=== PATIENT | female | born 1985 | race Caucasian/White ===

== ENCOUNTER 2019-08-27 05:23 | Inpatient (IN) | payer MEDICARE ==
[~2019-08-27] VITALS: Ht 172.7 cm; Wt 87.5 kg
[2019-08-27] MEDS ORDERED: PNV1TABL50 PO (05:55)
[2019-08-27] MEDS ORDERED: OMEGA (05:55)
[2019-08-27] MEDS ORDERED: FERR325T6 PO (05:55)
[2019-08-27] MEDS ORDERED: VITAMIN D (05:55)
[2019-08-27 07:45] LABS: CLARITY URINE CLEAR (CLEAR); COLOR URINE YELLOW (YELLOW); KETONES URINE NEGATIVE (NEGATIVE); LEUKOCYTE ESTERASE URINE NEGATIVE (NEGATIVE); NITRITE URINE NEGATIVE (NEGATIVE); OCCULT BLOOD URINE NEGATIVE (NEGATIVE); PH URINE 6.5 (4.5-8.0); PROTEIN URINE TRACE (NEGATIVE); SPECIFIC GRAVITY URINE 1.019 (1.005-1.030)
[2019-08-27] MEDS ORDERED: DEXT 5%/LR + PITOCIN 20UNITS/L 1,000 ML IV SCH ×2 (07:48→18:26)
[2019-08-27] MEDS ORDERED: NALOXONE HCL 0.4 MG/ML 1ML VIAL IM PRN (08:00)
[2019-08-27] MEDS ORDERED: RHO(D) IMMUNE GLOBULIN 300 MCG/SYR IM ONE (08:00)
[2019-08-27] MEDS ORDERED: LIDOCAINE HCL 1% 20ML VIAL (Pyxis) INJ INFIL SCH (08:00)
[2019-08-27] MEDS: LACTATED RINGERS 1,000 ML IV SCH ×3 (08:18→20:47)
[2019-08-27 08:38] LABS: INR 0.9; PARTIAL THROMBOPLASTIN TIME 26.5 sec (23.4-31.0); PROTHROMBIN TIME 9.7 sec (9.6-11.0)
[2019-08-27 08:51] LABS: BASOPHILS % 0.3 % (0.0-2.0); EOSINOPHILS % 2.2 % (0.0-5.0); HEMATOCRIT. 35.4 % (36.0-48.0); HEMOGLOBIN. 12.4 g/dL (12.0-16.0); MEAN CORPUSCULAR HEMOGLOBIN 31.2 pg (28.0-32.0); MEAN CORPUSCULAR VOLUME 89.2 fL (81.0-99.0); MEAN PLATELET VOLUME 9.4 fl (7.4-10.4); MONOCYTES % 6.9 % (2.0-8.0); NEUTROPHILS % 75.6 % (40.0-76.0); PLATELET 137 x1000/uL (130-400); RED BLOOD CELL COUNT 3.97 mill/uL (4.2-5.4); RED CELL DISTRIBUTION WIDTH 13.3 % (11.6-14.6)
[2019-08-27] MEDS ORDERED: PENICILLIN G POTASSIUM 5 MMU in DEXT 5% WATER 100 ML IV NR (09:00)
[2019-08-27 09:06] LABS: *AMPHETAMINES SCREEN URINE NEGATIVE (NEGATIVE); *BARBITURATES SCREEN URINE NEGATIVE (NEGATIVE); *BENZODIAZEPINES SCREEN URINE NEGATIVE (NEGATIVE)
[2019-08-27 09:07] LABS: *COCAINE SCREEN URINE NEGATIVE (NEGATIVE); CANNABINOID URINE SCREEN NEGATIVE (NEGATIVE); METHADONE URINE SCREEN NEGATIVE (NEGATIVE); OPIATES URINE SCREEN NEGATIVE (NEGATIVE); PHENCYCLIDINE URINE SCREEN NEGATIVE (NEGATIVE)
[2019-08-27] MEDS ORDERED: ROPIVACAINE HCL/PF EPIDURAL 200 ML EPI SCH (11:45)
[2019-08-27 12:05] LABS: HEPATITIS B SURFACE ANTIGEN NEGATIVE
[2019-08-27] MEDS: PENICILLIN G POTASSIUM 2.5 MMU in DEXTROSE 5% WATER 50 ML IV SCH ×2 (13:27→17:32)
[2019-08-27] MEDS ORDERED: BISACODYL 10MG SUPP PR PRN (18:30)
[2019-08-27] MEDS ORDERED: GLYCERIN/WITCH HAZEL LEAF MEDICATED PAD TOP PRN (18:30)
[2019-08-27] MEDS ORDERED: HEMORRHOIDAL SUPP PR PRN (18:30)
[2019-08-27] MEDS ORDERED: ACETAMINOPHEN WITH CODEINE 300/30MG TABLET PO PRN ×2 (18:30)
[2019-08-27] MEDS ORDERED: METHYLERGONOVINE MALEATE 0.2 MG/ML IM PRN (18:30)
[2019-08-27] MEDS ORDERED: DIPHENHYDRAMINE 25MG CAPSULE PO PRN (18:30)
[2019-08-27] MEDS ORDERED: LANOLIN OINT 7GM TUBE TOP PRN (18:30)
[2019-08-27] MEDS ORDERED: RHO(D) IMMUNE GLOBULIN 300 MCG/SYR IM PRN (18:30)
[2019-08-27 21:00] VITALS: BP 125/78
[2019-08-27] MEDS: DOCUSATE SODIUM 100MG CAPSULE PO SCH (21:00)
[2019-08-27] MEDS: SIMETHICONE 80MG TABLET CHEW PO SCH (21:00)
[2019-08-27] MEDS: MAGNESIUM/ALUMINUM HYDROXIDE/SIMETHICONE 30ML UDC PO SCH (21:00)
[2019-08-27] MEDS: IBUPROFEN 400MG TABLET PO PRN (21:44)
[2019-08-27] MEDS: BENZOCAINE/LANOLIN/ALOE VERA SPRAY TOP PRN (21:44)
[2019-08-27 22:00] VITALS: BP 128/77
[2019-08-27 23:00] VITALS: BP 124/76
[2019-08-28 04:00] VITALS: BP 100/48
[2019-08-28 06:18] LABS: BASOPHILS % 0.1 % (0.0-2.0); EOSINOPHILS % 0.6 % (0.0-5.0); HEMATOCRIT. 32.7 % (36.0-48.0); HEMOGLOBIN. 11.4 g/dL (12.0-16.0); LYMPHOCYTES % 9.3 % (20.0-50.0); MEAN CORPUSCULAR HEMOGLOBIN 30.9 pg (28.0-32.0); MEAN CORPUSCULAR VOLUME 89.1 fL (81.0-99.0); MEAN PLATELET VOLUME 9.9 fl (7.4-10.4); PLATELET 147 x1000/uL (130-400); RED BLOOD CELL COUNT 3.67 mill/uL (4.2-5.4); RED CELL DISTRIBUTION WIDTH 13.5 % (11.6-14.6)
[2019-08-28 08:15] VITALS: BP 106/73
[2019-08-28] MEDS: MAGNESIUM/ALUMINUM HYDROXIDE/SIMETHICONE 30ML UDC PO SCH ×4 (08:40→20:55)
[2019-08-28] MEDS: FERROUS SULFATE 325MG TABLET PO SCH ×3 (08:41→17:25)
[2019-08-28] MEDS: IBUPROFEN 400MG TABLET PO PRN (08:41)
[2019-08-28] MEDS: PRENATAL VIT/FE FUMARATE/FA TABLET PO SCH (08:41)
[2019-08-28] MEDS: SIMETHICONE 80MG TABLET CHEW PO SCH ×4 (08:41→22:00)
[2019-08-28 16:01] VITALS: BP 107/53
[2019-08-28 19:30] VITALS: BP 109/62
[2019-08-28] MEDS: DOCUSATE SODIUM 100MG CAPSULE PO SCH (20:55)
[2019-08-29 04:00] VITALS: BP 118/65
[2019-08-29 08:00] VITALS: BP 119/83
[2019-08-29] MEDS: MAGNESIUM/ALUMINUM HYDROXIDE/SIMETHICONE 30ML UDC PO SCH (08:39)
[2019-08-29] MEDS: FERROUS SULFATE 325MG TABLET PO SCH (08:39)
[2019-08-29] MEDS: PRENATAL VIT/FE FUMARATE/FA TABLET PO SCH (08:39)
[2019-08-29] MEDS: BENZOCAINE/LANOLIN/ALOE VERA SPRAY TOP PRN (12:16)
== END 2019-08-29 12:45 | disposition home or self-care (01) | DRG 560 ==
LOC: INTOOBSV 05:23 → 8 EST LDRP 05:23 → OBSVTOIN 05:23 → 8EST 21:49
PROVIDERS: ADMIT Obstetrics & Gynecology; ATTEND Obstetrics & Gynecology
PROC: 10E0XZZ Delivery of Products of Conception, External Approach (ICD-10-PCS; principal; 2019-08-27)
PROC: 3E0R3BZ Introduction of Anesthetic Agent into Spinal Canal, Percutaneous Approach (ICD-10-PCS; 2019-08-27)
PROC: 00HU33Z Insertion of Infusion Device into Spinal Canal, Percutaneous Approach (ICD-10-PCS; 2019-08-27)
DX: O34.211 Maternal care for low transverse scar from previous cesarean delivery (principal); O41.03X0 Oligohydramnios, third trimester, not applicable or unspecified; O70.20 Third degree perineal laceration during delivery, unspecified; Z37.0 Single live birth; Z3A.39 39 weeks gestation of pregnancy
CPT/HCPCS: 36415; 76805; 76818; 80305; 81003; 85025; 86592; 86703; 86762; 86850; 86900; 87340; 99281; J2540; J2590; J2795; J3490; J7060